=== PATIENT | male | born 1945 | race Caucasian/White ===

== ENCOUNTER 2018-02-16 06:20 | Day surgery (SDC) | payer MEDICARE, OTHER ==
[2018-02-12 10:58] LABS: BASOPHILS # (AUTO) 0.1 X10'3 (0-0.2); BASOPHILS % (AUTO) 1.5 % (0-1); EOSINOPHILS # (AUTO) 0.2 X10'3 (0-0.9); EOSINOPHILS % (AUTO) 2.6 % (0-6); LYMPHOCYTES # (AUTO) 1.1 X10'3 (1.1-4.8); LYMPHOCYTES % (AUTO) 16.5 % (21-51); MEAN CORPUSCULAR HEMOGLOBIN 31.3 PG (27.0-31.0); MEAN CORPUSCULAR HGB CONC 33.1 % (33.0-36.5); MEAN CORPUSCULAR VOLUME 94.5 FL (78-98); MEAN PLATELET VOLUME 9.4 FL (7.4-10.4); MONOCYTES # (AUTO) 0.6 X10'3 (0-0.9); MONOCYTES % (AUTO) 8.4 % (2-12); NEUTROPHILS # (AUTO) 4.8 X10'3 (1.8-7.7); PRE OP HEMATOCRIT 41.1 % (42.0-52.0); PRE OP HEMOGLOBIN 13.6 g/dL (14.0-17.9); PRE OP PLATELET COUNT 194 X10'3 (140-440); RED BLOOD COUNT 4.35 X10'6 (4.70-6.10); RED CELL DISTRIBUTION WIDTH 13.2 % (11.5-14.5)
[2018-02-12 11:19] LABS: ALBUMIN 3.9 G/DL (3.4-5.0); ALBUMIN/GLOBULIN RATIO 1.1 (1.1-1.5); ALKALINE PHOSPHATASE 67 IU/L (46-116); BLOOD UREA NITROGEN 32 MG/DL (7-18); BUN/CREATININE RATIO 18.3 (5.4-32.0); CALCIUM 9.2 MG/DL (8.5-10.1); CHLORIDE 102 MMOL/L (99-107); CREATININE 1.75 MG/DL (0.60-1.10); PRE OP ALT 32 U/L (30-65); PRE OP ANION GAP 6 (8-16); PRE OP AST 21 U/L (10-37); PRE OP BILIRUB, TOTAL 0.6 MG/DL (0.0-1.0); PRE OP GLUCOSE 104 MG/DL (70-104); PRE OP SODIUM 138 MMOL/L (135-145); TOTAL CARBON DIOXIDE 29.6 MMOL/L (24-32); TOTAL PROTEIN 7.3 G/DL (6.4-8.2); eGFR 38 ML/MIN
[~2018-02-16] VITALS: Ht 180.3 cm; Wt 134.5 kg
[2018-02-16] MEDS: clindamycin 600mg/D5W 50ml 50 ML IV ONE ×2 (05:30→07:25)
[~2018-02-16 06:20] MED LIST: AMLO2.5T2 PO; ASPI-1264 PO; ATOR10TA87 PO; CETI-102 PO; CHLO25TA2 PO; DOCUMENT DATE & TIME OF BETA-BLOCKER PO ONE; GABA-532 PO; GLUC-133 PO; INSU100V12 SQ; LISI40TA4 PO; METO50TA17 PO; MULT-1141 PO; RANI150T8 PO; ZOLP10TA PO; [UNRECOGNIZED DRUG - CODE] PO; famotidine 20mg tablet PO ONE; ringers solution, lacted 1,000 ML IV SCH
[2018-02-16 06:30] VITALS: BP 127/71
[2018-02-16] MEDS ORDERED: BUPIVAcaine/PF 2.5mg/ml (0.25%) 10ml vial ONE (06:42)
[2018-02-16] MEDS ORDERED: LIDOcaine 0.5% (5mg/ml) 50ml vial ONE (07:29)
[2018-02-16] MEDS ORDERED: midazolam 2 mg/2 ml injection ONE (08:24)
[2018-02-16] MEDS ORDERED: fentaNYL/PF 50MCG/1 ML 2ML syringe ONE (08:24)
[2018-02-16 09:20] VITALS: BP 96/48
[2018-02-16 09:30] VITALS: BP 111/59
[2018-02-16 09:40] VITALS: BP 112/71
[2018-02-16 09:50] VITALS: BP 115/68
[2018-02-16] MEDS ORDERED: ePHEDrine 50MG/ML INJ. ONE (10:15)
== END 2018-02-16 09:50 | disposition home or self-care (01) ==
LOC: PAS 06:20
PROVIDERS: ATTEND Orthopaedic Surgery Hand Surgery
DX: G56.01 Carpal tunnel syndrome, right upper limb (principal); I25.2 Old myocardial infarction; I13.10 Hypertensive heart and chronic kidney disease without heart failure, with stage 1 through stage 4 chronic kidney disease, or unspecified chronic kidney disease; E11.22 Type 2 diabetes mellitus with diabetic chronic kidney disease; N18.9 Chronic kidney disease, unspecified; E11.40 Type 2 diabetes mellitus with diabetic neuropathy, unspecified; G47.33 Obstructive sleep apnea (adult) (pediatric); M19.90 Unspecified osteoarthritis, unspecified site; K21.9 Gastro-esophageal reflux disease without esophagitis; I25.810 Atherosclerosis of coronary artery bypass graft(s) without angina pectoris; Z87.442 Personal history of urinary calculi; Z79.82 Long term (current) use of aspirin; Z79.4 Long term (current) use of insulin; Z88.1 Allergy status to other antibiotic agents; Z79.891 Long term (current) use of opiate analgesic; Z72.89 Other problems related to lifestyle; Z87.891 Personal history of nicotine dependence; Z98.41 Cataract extraction status, right eye; Z98.42 Cataract extraction status, left eye; Z86.14 Personal history of Methicillin resistant Staphylococcus aureus infection; Z95.1 Presence of aortocoronary bypass graft; Z88.8 Allergy status to other drugs, medicaments and biological substances; Z98.890 Other specified postprocedural states; Z79.899 Other long term (current) drug therapy; Z82.49 Family history of ischemic heart disease and other diseases of the circulatory system; Z83.3 Family history of diabetes mellitus
CPT/HCPCS: 36415; 64721; 80053; 82948; 85025; 93005; A6222; A6449; J2001; J2250; J3010; J3490; J7120

== ENCOUNTER 2018-03-16 07:00 | Day surgery (SDC) | payer MEDICARE, OTHER ==
[~2018-03-16] VITALS: Ht 180.3 cm; Wt 135.0 kg
[~2018-03-16 07:00] MED LIST changes: +cefazolin/dext.iso 2gm/100 ML IV ONE; +cefazolin/dext.iso 2gm/50ml 50 ML IV ONE
[2018-03-16 08:18] LABS: ISTAT CREATININE 1.6 mg/dL (0.8-1.3); ISTAT HGB 13.9 g/dl (14.0-18.0); ISTAT IONIZED CALCIUM 1.14 mmol/L (1.03-1.32); ISTAT K 4.7 mmol/L (3.5-5.1); POC BUN/CREATININE RATIO 21.3 (5.4-32.0)
[2018-03-16] MEDS ORDERED: SLOW (08:31)
[2018-03-16 08:43] VITALS: BP 133/70
[2018-03-16 08:48] VITALS: BP 133/70
[2018-03-16] MEDS ORDERED: BUPIVAcaine/PF 2.5mg/ml (0.25%) 10ml vial ONE (09:12)
[2018-03-16] MEDS ORDERED: LIDOcaine 0.5% (5mg/ml) 50ml vial ONE (09:25)
[2018-03-16] MEDS ORDERED: fentaNYL/PF 50MCG/1 ML 2ML syringe ONE (09:44)
[2018-03-16] MEDS ORDERED: midazolam 2 mg/2 ml injection ONE (09:46)
[2018-03-16 10:10] VITALS: BP 118/69
[2018-03-16 10:20] VITALS: BP 121/66
[2018-03-16] MEDS ORDERED: ringers solution, lacted 1,000 ML IV SCH (10:28)
[2018-03-16 10:30] VITALS: BP 103/61
[2018-03-16] MEDS ORDERED: ondansetron/PF 4mg/2ml inj IV PRN (10:30)
[2018-03-16] MEDS ORDERED: morphine 4 MG/ML inj SYRINge IV PRN (10:30)
[2018-03-16 10:40] VITALS: BP 106/67
== END 2018-03-16 10:40 | disposition home or self-care (01) ==
LOC: PAS 07:00
PROVIDERS: ATTEND Orthopaedic Surgery Hand Surgery
DX: G56.02 Carpal tunnel syndrome, left upper limb (principal); G47.33 Obstructive sleep apnea (adult) (pediatric); I25.810 Atherosclerosis of coronary artery bypass graft(s) without angina pectoris; K21.9 Gastro-esophageal reflux disease without esophagitis; E11.42 Type 2 diabetes mellitus with diabetic polyneuropathy; E66.9 Obesity, unspecified; M19.90 Unspecified osteoarthritis, unspecified site; I13.10 Hypertensive heart and chronic kidney disease without heart failure, with stage 1 through stage 4 chronic kidney disease, or unspecified chronic kidney disease; E11.22 Type 2 diabetes mellitus with diabetic chronic kidney disease; N18.9 Chronic kidney disease, unspecified; F10.10 Alcohol abuse, uncomplicated; Z95.1 Presence of aortocoronary bypass graft; Z98.41 Cataract extraction status, right eye; Z98.52 Vasectomy status; Z87.442 Personal history of urinary calculi; Z86.14 Personal history of Methicillin resistant Staphylococcus aureus infection; Z86.79 Personal history of other diseases of the circulatory system; Z79.82 Long term (current) use of aspirin; Z79.4 Long term (current) use of insulin; Z68.41 Body mass index [BMI] 40.0-44.9, adult; Z87.891 Personal history of nicotine dependence; Z98.42 Cataract extraction status, left eye; Z88.1 Allergy status to other antibiotic agents; Z79.891 Long term (current) use of opiate analgesic; Z79.899 Other long term (current) drug therapy; Z98.890 Other specified postprocedural states; Z88.8 Allergy status to other drugs, medicaments and biological substances; Z83.3 Family history of diabetes mellitus; Z82.49 Family history of ischemic heart disease and other diseases of the circulatory system
CPT/HCPCS: 64721; 80047; A6222; A6449; J0690; J2001; J2250; J3010; J3490; J7120